=== PATIENT | female | born 1955 | race Caucasian/White ===

== ENCOUNTER 2017-05-11 09:55 | Day surgery (SDC) | payer MEDICARE, OTHER ==
[~2017-05-11 09:55] MED LIST: Lactated Ringers 1,000 ML IV SCH
[2017-05-11] MEDS ORDERED: fentaNYL 100 MCG/2 ML SDV ONE (11:23)
[2017-05-11] MEDS ORDERED: Propofol 200 MG/20 ML SDV ONE (11:34)
[2017-05-11 13:11] VITALS: BP 108/60
--- NOTE | 2017-05-11 20:42 | OR ---
PREOPERATIVE DIAGNOSIS: Screening colonoscopy. POSTOPERATIVE DIAGNOSIS: Normal colonoscopic exam. PROCEDURE PROPOSED: Total flexible colonoscopy. PROCEDURE DONE: Total flexible colonoscopy. INDICATION: This is a 62-year-old female, who comes in for colonic surveillance. Her last examination was 10 years ago. She denies any symptomatology and she has a negative family history of colon cancer. TECHNIQUE: The patient was brought to the endoscopy suite, placed in left lateral decubitus position. She was sedated with propofol per EM[employer]SION OPERATOR. The flexible video colonoscope was then passed transanally and under visualization advanced to the cecum. Examination revealed a normal ascending, transverse, descending, sigmoid, and rectal colon. There was no evidence of any polyps, diverticulosis, colitis or any other abnormalities. The scope was then withdrawn. The patient tolerated the procedure well. FINAL IMPRESSION: Essentially normal colonoscopic exam. PLAN: The patient is reassured. I felt she could wait 10 years before she needs a repeat exam. SCM: 05/11/2017 12:22:56 MODL: 05/11/2017 16:16:48 /[id number]
== END 2017-05-11 13:38 | disposition home or self-care (01) ==
LOC: VM.SDS 09:55
PROVIDERS: ATTEND Surgery
DX: Z12.11 Encounter for screening for malignant neoplasm of colon (principal); E03.9 Hypothyroidism, unspecified; F32.9 Major depressive disorder, single episode, unspecified; E78.00 Pure hypercholesterolemia, unspecified; G47.30 Sleep apnea, unspecified; Z88.8 Allergy status to other drugs, medicaments and biological substances; Z98.890 Other specified postprocedural states; Z90.710 Acquired absence of both cervix and uterus; F17.210 Nicotine dependence, cigarettes, uncomplicated
CPT/HCPCS: G0121; J2704; J3010; J7120; 00810